=== PATIENT | male | born 1975 | race Caucasian/White ===

== ENCOUNTER → 2019-09-02 13:05 | Outpatient (BNVA) | payer MEDICARE, SELFPAY | PROVIDERS: Family Provider Family Medicine; Referring Provider Dermatology; Visit Provider Otolaryngology | DX: H93.11 Tinnitus, right ear (principal); H91.91 Unspecified hearing loss, right ear; J34.2 Deviated nasal septum; J34.3 Hypertrophy of nasal turbinates | CPT/HCPCS: 99203; 99214 ==